=== PATIENT | female | born 1985 ===

== ENCOUNTER 2021-06-02 10:51 | Emergency (ER) | payer MEDICAID ==
[~2021-06-02] VITALS: Ht 170.2 cm; Wt 75.5 kg
[2021-06-02] MEDS ORDERED: PREDNISONE50 MG PO (11:44)
[2021-06-02] MEDS ORDERED: BENTYL 20MG20 MG/TAB PO (11:44)
[2021-06-02] MEDS ORDERED: PHENERGAN 25 TA25 MG PO (11:45)
[2021-06-02 12:52] LABS: MONOSCREEN NEGATIVE
[2021-06-02 13:32] VITALS: BP 115/71; PULSE 92; TEMP 98.6
== END 2021-06-02 13:36 | disposition home or self-care (01) ==
LOC: COL.ER 10:51
PROVIDERS: Physician Assistant
DX: J02.8 Acute pharyngitis due to other specified organisms (principal); K50.90 Crohn's disease, unspecified, without complications; Z86.69 Personal history of other diseases of the nervous system and sense organs; Z86.16 Personal history of COVID-19; Z79.52 Long term (current) use of systemic steroids
CPT/HCPCS: J1885; J2765